=== PATIENT | female | born 1990 | race Caucasian/White ===

== ENCOUNTER 2020-07-20 07:45 | Day surgery (SDC) | payer BC, OTHER ==
[2020-07-20] MEDS ORDERED: Sodium Chloride 0.9% 10 ML Syringe FLUSH PRN ×2 (08:06→08:49)
[2020-07-20] MEDS ORDERED: Lactated Ringers 1,000 ML IV ONE (08:06)
[2020-07-20] MEDS ORDERED: Morphine 4 MG/ML Syringe IVPUSH ONE ×2 (08:06→10:24)
[2020-07-20] MEDS ORDERED: Ondansetron 4 MG/2 ML SDV IVPUSH ONE (08:06)
[2020-07-20] MEDS ORDERED: Sodium Chloride 0.9% 2.5 ML Syringe FLUSH PRN ×2 (08:06→08:49)
--- NOTE | 2020-07-20 08:11 | EDM.PDOC ---
ED HPI GENERAL MEDICAL PROBLEM - General Chief Complaint: Abdominal Pain Stated Complaint: STOMACH HURTS Time Seen by Provider: 07/20/20 08:02 Source of Information: Reports: Patient History Limitations: Reports: No Limitations - History of Present Illness INITIAL COMMENTS - FREE TEXT/NARRATIVE: 29-year-old female with no past medical history presents with abdominal pain. Pain woke her up from sleep at 0100 today, localized to the left upper quadrant, described as bloody, pain radiates diffusely, pain is constant, exacerbated by taking a deep breath. She denies fever, chills, chest pain, cough, nausea, vomiting, diarrhea, dysuria. She started having her period on Monday. ROS: A 10-point review of systems, other than pertinent positives and negatives as stated per HPI, is otherwise negative Past medical history: No additional pertinent history Past Surgical history: No additional pertinent history Social history: No additional pertinent history Family history: No additional pertinent history PHYSICAL EXAM General: AOx4, GCS = 15, moderate distress HEENT: dry mucous membrane Neck: supple, no meningismus, no Kernig or Brudzinski Cardiac: S1S2 tachycardia Respiratory: CTAB, no crackles or rales, no wheezing Abdomen: Soft, diffuse tender, no rebound or guarding, nondistended, no pulsatile mass. Back: nontender Musculoskeletal: NVI distally, no deformity Neuro: No focal deficits, CN 2 - 12 WNL. left upper abdomen & left back Pain Score (Numeric/FACES): 5 - Related Data Allergies Allergy/AdvReac Type Severity Reaction Status Date / Time No Known Allergies Allergy Verified 07/20/20 07:54 Home Meds: Home Meds Insulin Aspart [NovoLOG] 07/20/20 [History] Past Medical History Endocrine/Metabolic History: Reports: Diabetes, Type I Social & Family History - Family History Family Medical History: Noncontributory - Tobacco Use Smoking Status *Q: Never Smoker - Recreational Drug Use Recreational Drug Use: No ED ROS GENERAL - Review of Systems Review Of Systems: See Below (see dictation) ED EXAM, GI/ABD - Physical Exam Exam: See Below (see dictation) Course - Vital Signs Last Recorded V/S: Last Vital Signs Temp 96.9 F 07/20/20 09:48 Pulse 108 H 07/20/20 10:13 Resp 16 07/20/20 09:48 BP 142/74 H 07/20/20 10:13 Pulse Ox 98 07/20/20 09:48 - Orders/Labs/Meds Orders: Active Orders 24 hr Category Date Time Status Admission Status [Patient Status] [ADT] Stat ADT 07/20/20 11:38 Ordered Blood Pressure Mgt: Sepsis [RC] Q15MX2 Care 07/20/20 08:51 Active CULTURE BLOOD [BC] Stat Lab 07/20/20 08:58 Received CULTURE BLOOD [BC] Stat Lab 07/20/20 09:03 Received Sodium Chloride 0.9% [Saline Flush] Med 07/20/20 08:06 Active 10 ml FLUSH ASDIRECTED PRN Sodium Chloride 0.9% [Saline Flush] Med 07/20/20 08:49 Active 10 ml FLUSH ASDIRECTED PRN Sodium Chloride 0.9% [Saline Flush] Med 07/20/20 08:06 Active 2.5 ml FLUSH ASDIRECTED PRN Sodium Chloride 0.9% [Saline Flush] Med 07/20/20 08:49 Active 2.5 ml FLUSH ASDIRECTED PRN Blood Culture x2 Reflex Set [OM.PC] Stat Ot 07/20/20 08:49 Ordered Saline Lock Insert [OM.PC] Stat Ot 07/20/20 08:06 Ordered Saline Lock Insert [OM.PC] Stat Ot 07/20/20 08:49 Ordered Severe Sepsis Onset Time [OM.PC] Stat Ot 07/20/20 08:49 Ordered Medication Orders Sodium Chloride (Saline Flush) 10 ml FLUSH ASDIRECTED PRN PRN Reason: Keep Vein Open Last Admin: 07/20/20 08:24 Dose: 10 ml Documented by: MURIJAM Sodium Chloride (Saline Flush) 2.5 ml FLUSH ASDIRECTED PRN PRN Reason: Keep Vein Open Last Admin: 07/20/20 08:28 Dose: 2.5 ml Documented by: MURIJAM Sodium Chloride (Saline Flush) 10 ml FLUSH ASDIRECTED PRN PRN Reason: Keep Vein Open Sodium Chloride (Saline Flush) 2.5 ml FLUSH ASDIRECTED PRN PRN Reason: Keep Vein Open Labs: Laboratory Tests 07/20/20 07/20/20 07/20/20 Range/Units 08:03 08:03 08:03 WBC 20.98 H (4.0-11.0) K/uL RBC 4.41 (4.30-5.90) M/uL Hgb 14.2 (12.0-16.0) g/dL Hct 41.7 (36.0-46.0) % MCV 94.6 (80.0-98.0) fL MCH 32.2 H (27.0-32.0) pg MCHC 34.1 (31.0-37.0) g/dL RDW Std Deviation 42.7 (28.0-62.0) fl RDW Coeff of Nasim 12 (11.0-15.0) % Plt Count 300 (150-400) K/uL MPV 11.60 (7.40-12.00) fL Neut % (Auto) 85.4 H (48.0-80.0) % Lymph % (Auto) 3.6 L (16.0-40.0) % [place] % (Auto) 10.8 (0.0-15.0) % Eos % (Auto) 0.1 (0.0-7.0) % Baso % (Auto) 0.1 (0.0-1.5) % Neut # (Auto) 17.9 H (1.4-5.7) K/uL Lymph # (Auto) 0.8 (0.6-2.4) K/uL [place] # (Auto) 2.3 H (0.0-0.8) K/uL Eos # (Auto) 0.0 (0.0-0.7) K/uL Baso # (Auto) 0.0 (0.0-0.1) K/uL Nucleated RBC % 0.0 /100WBC Nucleated RBCs # 0 K/uL INR 0.94 Lactate (0.20-2.00) mmol/L Sodium 134 L (136-145) mmol/L Potassium 3.8 (3.5-5.1) mmol/L Chloride 99 (98-107) mmol/L Carbon Dioxide 23.0 (21.0-32.0) mmol/L BUN 7 (7.0-18.0) mg/dL Creatinine 0.7 (0.6-1.0) mg/dL Est Cr Clr Drug Dosing 126.16 mL/min Estimated GFR (MDRD) > 60.0 ml/min Glucose 247 H (74-106) mg/dL POC Glucose (60-110) mg/dL Calcium 8.7 (8.5-10.1) mg/dL Total Bilirubin 0.8 (0.2-1.0) mg/dL AST 13 L (15-37) IU/L ALT 23 (14-63) IU/L Alkaline Phosphatase 104 (46-116) U/L C-Reactive Protein (0.00-0.90) mg/dL Total Protein 7.1 (6.4-8.2) g/dL Albumin 3.7 (3.4-5.0) g/dL Globulin 3.4 (2.6-4.0) g/dL Albumin/Globulin Ratio 1.1 (0.9-1.6) Lipase 40 L (73-393) U/L Urine Color Urine Appearance Urine pH (5.0-8.0) Ur Specific [place] (1.001-1.035) Urine Protein (NEGATIVE) mg/dL Urine Glucose (UA) (NEGATIVE) mg/dL Urine Ketones (NEGATIVE) mg/dL Urine Occult Blood (NEGATIVE) Urine Nitrite (NEGATIVE) Urine Bilirubin (NEGATIVE) Urine Urobilinogen (<2.0) EU/dL Ur Leukocyte Esterase (NEGATIVE) Urine RBC (0-2/HPF) Urine WBC (0-5/HPF) Ur Epithelial Cells (NONE-FEW) Urine Bacteria (NEGATIVE) Urine HCG, Qual (NEGATIVE) SARS-CoV-2 RNA (FORD) (NEGATIVE) 07/20/20 07/20/20 07/20/20 Range/Units 08:03 08:03 09:04 WBC (4.0-11.0) K/uL RBC (4.30-5.90) M/uL Hgb (12.0-16.0) g/dL Hct (36.0-46.0) % MCV (80.0-98.0) fL MCH (27.0-32.0) pg MCHC (31.0-37.0) g/dL RDW Std Deviation (28.0-62.0) fl RDW Coeff of Nasim (11.0-15.0) % Plt Count (150-400) K/uL MPV (7.40-12.00) fL Neut % (Auto) (48.0-80.0) % Lymph % (Auto) (16.0-40.0) % [place] % (Auto) (0.0-15.0) % Eos % (Auto) (0.0-7.0) % Baso % (Auto) (0.0-1.5) % Neut # (Auto) (1.4-5.7) K/uL Lymph # (Auto) (0.6-2.4) K/uL [place] # (Auto) (0.0-0.8) K/uL Eos # (Auto) (0.0-0.7) K/uL Baso # (Auto) (0.0-0.1) K/uL Nucleated RBC % /100WBC Nucleated RBCs # K/uL INR Lactate 0.8 (0.20-2.00) mmol/L Sodium (136-145) mmol/L Potassium (3.5-5.1) mmol/L Chloride (98-107) mmol/L Carbon Dioxide (21.0-32.0) mmol/L BUN (7.0-18.0) mg/dL Creatinine (0.6-1.0) mg/dL Est Cr Clr Drug Dosing mL/min Estimated GFR (MDRD) ml/min Glucose (74-106) mg/dL POC Glucose 203 H (60-110) mg/dL Calcium (8.5-10.1) mg/dL Total Bilirubin (0.2-1.0) mg/dL AST (15-37) IU/L ALT (14-63) IU/L Alkaline Phosphatase (46-116) U/L C-Reactive Protein 2.10 H (0.00-0.90) mg/dL Total Protein (6.4-8.2) g/dL Albumin (3.4-5.0) g/dL Globulin (2.6-4.0) g/dL Albumin/Globulin Ratio (0.9-1.6) Lipase (73-393) U/L Urine Color Urine Appearance Urine pH (5.0-8.0) Ur Specific [place] (1.001-1.035) Urine Protein (NEGATIVE) mg/dL Urine Glucose (UA) (NEGATIVE) mg/dL Urine Ketones (NEGATIVE) mg/dL Urine Occult Blood (NEGATIVE) Urine Nitrite (NEGATIVE) Urine Bilirubin (NEGATIVE) Urine Urobilinogen (<2.0) EU/dL Ur Leukocyte Esterase (NEGATIVE) Urine RBC (0-2/HPF) Urine WBC (0-5/HPF) Ur Epithelial Cells (NONE-FEW) Urine Bacteria (NEGATIVE) Urine HCG, Qual (NEGATIVE) SARS-CoV-2 RNA (FORD) (NEGATIVE) 07/20/20 07/20/20 07/20/20 Range/Units 09:41 09:41 10:27 WBC (4.0-11.0) K/uL RBC (4.30-5.90) M/uL Hgb (12.0-16.0) g/dL Hct (36.0-46.0) % MCV (80.0-98.0) fL MCH (27.0-32.0) pg MCHC (31.0-37.0) g/dL RDW Std Deviation (28.0-62.0) fl RDW Coeff of Nasim (11.0-15.0) % Plt Count (150-400) K/uL MPV (7.40-12.00) fL Neut % (Auto) (48.0-80.0) % Lymph % (Auto) (16.0-40.0) % [place] % (Auto) (0.0-15.0) % Eos % (Auto) (0.0-7.0) % Baso % (Auto) (0.0-1.5) % Neut # (Auto) (1.4-5.7) K/uL Lymph # (Auto) (0.6-2.4) K/uL [place] # (Auto) (0.0-0.8) K/uL Eos # (Auto) (0.0-0.7) K/uL Baso # (Auto) (0.0-0.1) K/uL Nucleated RBC % /100WBC Nucleated RBCs # K/uL INR Lactate (0.20-2.00) mmol/L Sodium (136-145) mmol/L Potassium (3.5-5.1) mmol/L Chloride (98-107) mmol/L Carbon Dioxide (21.0-32.0) mmol/L BUN (7.0-18.0) mg/dL Creatinine (0.6-1.0) mg/dL Est Cr Clr Drug Dosing mL/min Estimated GFR (MDRD) ml/min Glucose (74-106) mg/dL POC Glucose (60-110) mg/dL Calcium (8.5-10.1) mg/dL Total Bilirubin (0.2-1.0) mg/dL AST (15-37) IU/L ALT (14-63) IU/L Alkaline Phosphatase (46-116) U/L C-Reactive Protein (0.00-0.90) mg/dL Total Protein (6.4-8.2) g/dL Albumin (3.4-5.0) g/dL Globulin (2.6-4.0) g/dL Albumin/Globulin Ratio (0.9-1.6) Lipase (73-393) U/L Urine Color YELLOW Urine Appearance CLEAR Urine pH 7.5 (5.0-8.0) Ur Specific [place] 1.010 (1.001-1.035) Urine Protein NEGATIVE (NEGATIVE) mg/dL Urine Glucose (UA) >=1000 (NEGATIVE) mg/dL Urine Ketones 15 H (NEGATIVE) mg/dL Urine Occult Blood SMALL H (NEGATIVE) Urine Nitrite NEGATIVE (NEGATIVE) Urine Bilirubin NEGATIVE (NEGATIVE) Urine Urobilinogen 0.2 (<2.0) EU/dL Ur Leukocyte Esterase NEGATIVE (NEGATIVE) Urine RBC 2-3 (0-2/HPF) Urine WBC 0-1 (0-5/HPF) Ur Epithelial Cells RARE (NONE-FEW) Urine Bacteria RARE (NEGATIVE) Urine HCG, Qual NEGATIVE (NEGATIVE) SARS-CoV-2 RNA (FORD) NEGATIVE (NEGATIVE) 07/20/20 Range/Units 10:32 WBC (4.0-11.0) K/uL RBC (4.30-5.90) M/uL Hgb (12.0-16.0) g/dL Hct (36.0-46.0) % MCV (80.0-98.0) fL MCH (27.0-32.0) pg MCHC (31.0-37.0) g/dL RDW Std Deviation (28.0-62.0) fl RDW Coeff of Nasim (11.0-15.0) % Plt Count (150-400) K/uL MPV (7.40-12.00) fL Neut % (Auto) (48.0-80.0) % Lymph % (Auto) (16.0-40.0) % [place] % (Auto) (0.0-15.0) % Eos % (Auto) (0.0-7.0) % Baso % (Auto) (0.0-1.5) % Neut # (Auto) (1.4-5.7) K/uL Lymph # (Auto) (0.6-2.4) K/uL [place] # (Auto) (0.0-0.8) K/uL Eos # (Auto) (0.0-0.7) K/uL Baso # (Auto) (0.0-0.1) K/uL Nucleated RBC % /100WBC Nucleated RBCs # K/uL INR Lactate (0.20-2.00) mmol/L Sodium (136-145) mmol/L Potassium (3.5-5.1) mmol/L Chloride (98-107) mmol/L Carbon Dioxide (21.0-32.0) mmol/L BUN (7.0-18.0) mg/dL Creatinine (0.6-1.0) mg/dL Est Cr Clr Drug Dosing mL/min Estimated GFR (MDRD) ml/min Glucose (74-106) mg/dL POC Glucose 174 H (60-110) mg/dL Calcium (8.5-10.1) mg/dL Total Bilirubin (0.2-1.0) mg/dL AST (15-37) IU/L ALT (14-63) IU/L Alkaline Phosphatase (46-116) U/L C-Reactive Protein (0.00-0.90) mg/dL Total Protein (6.4-8.2) g/dL Albumin (3.4-5.0) g/dL Globulin (2.6-4.0) g/dL Albumin/Globulin Ratio (0.9-1.6) Lipase (73-393) U/L Urine Color Urine Appearance Urine pH (5.0-8.0) Ur Specific [place] (1.001-1.035) Urine Protein (NEGATIVE) mg/dL Urine Glucose (UA) (NEGATIVE) mg/dL Urine Ketones (NEGATIVE) mg/dL Urine Occult Blood (NEGATIVE) Urine Nitrite (NEGATIVE) Urine Bilirubin (NEGATIVE) Urine Urobilinogen (<2.0) EU/dL Ur Leukocyte Esterase (NEGATIVE) Urine RBC (0-2/HPF) Urine WBC (0-5/HPF) Ur Epithelial Cells (NONE-FEW) Urine Bacteria (NEGATIVE) Urine HCG, Qual (NEGATIVE) SARS-CoV-2 RNA (FORD) (NEGATIVE) Meds: Medications Generic Name Dose Route Start Last Admin Trade Name Cristal PRN Reason Stop Dose Admin Sodium Chloride 10 ml 07/20/20 08:06 07/20/20 08:24 Saline Flush FLUSH 10 ml ASDIRECTED PRN Administration Keep Vein Open Sodium Chloride 2.5 ml 07/20/20 08:06 07/20/20 08:28 Saline Flush FLUSH 2.5 ml ASDIRECTED PRN Administration Keep Vein Open Sodium Chloride 10 ml 07/20/20 08:49 Saline Flush FLUSH ASDIRECTED PRN Keep Vein Open Sodium Chloride 2.5 ml 07/20/20 08:49 Saline Flush FLUSH ASDIRECTED PRN Keep Vein Open Discontinued Medications Generic Name Dose Route Start Last Admin Trade Name Cristal PRN Reason Stop Dose Admin Lactated Ringer's 1,000 mls @ 999 mls/hr 07/20/20 08:06 07/20/20 08:25 Ringers, Lactated IV 07/20/20 09:06 999 mls/hr .BOLUS ONE Administration Sodium Chloride 2,000 mls @ 999 mls/hr 07/20/20 08:49 07/20/20 09:07 Normal Saline IV 07/20/20 10:49 999 mls/hr BOLUS ONE Administration Protocol Piperacillin Sod/Tazobactam 100 mls @ 200 mls/hr 07/20/20 08:49 07/20/20 09:48 Sod 4.5 gm/ Sodium Chloride IV 07/20/20 09:18 Not Given STAT ONE Piperacillin Sod/Tazobactam 100 mls @ 200 mls/hr 07/20/20 09:15 07/20/20 09:15 Sod 4.5 gm/ Sodium Chloride IV 07/20/20 09:44 200 mls/hr STAT ONE Administration Morphine Sulfate 4 mg 07/20/20 08:06 07/20/20 08:25 Morphine IVPUSH 07/20/20 08:07 4 mg ONETIME ONE Administration Morphine Sulfate 4 mg 07/20/20 10:24 07/20/20 10:30 Morphine IVPUSH 07/20/20 10:25 4 mg ONETIME ONE Administration Ondansetron HCl 4 mg 07/20/20 08:06 07/20/20 08:25 Zofran IVPUSH 07/20/20 08:07 4 mg ONETIME ONE Administration - Re-Assessments/Exams Free Text/Narrative Re-Assessment/Exam: 07/20/20 10:[address] Filipe Fernandez 07/20/20 10:51 Dr. Filipe Fernandez will come to the ER to assess patient. 07/20/20 11:40 Dr. Fernandez to admit to same day surgery, taking her to OR now. Departure - Departure Time of Disposition: 10:52 Disposition: Still A Patient 30 Condition: Good Clinical Impression: Appendicitis, Sepsis - Discharge Information *PRESCRIPTION DRUG MONITORING PROGRAM REVIEWED*: Not Applicable *COPY OF PRESCRIPTION DRUG MONITORING REPORT IN PATIENT ALYSSA: Not Applicable Instructions: Appendicitis, Adult Referrals: PCP,None [Primary Care Provider] - Forms: ED Department Discharge Critical Care Note - Critical Care Note Total Time (mins): 128 Comments: CRITCAL CARE: The high probability of sudden, clinically significant deterioration in the patient's condition required the highest level of my preparedness to intervene urgently. The services I provided to this patient were to treat and/or prevent clinically significant deterioration. Services included the following: chart data review, reviewing nursing notes and/or old charts, documentation time, image consultant collaboration regarding findings and treatment options, medication orders and management, direct patient care, vital sign assessments and ordering, interpreting and reviewing diagnostic studies/lab tests. Aggregate critical care time includes only time during which I was engaged in work directly related to the patient's care, as described above, whether at the bedside or elsewhere in the Emergency Department. It did not include time spent performing other reported procedures or the services of residents, students, nurses or physician assistants. Frequent interventions and/or frequent repeat evaluations were required as well as counseling and coordination of care regarding prognosis, treatments, and discussions with patient, staff and consultants. Critical Care (excluding other procedures): 128 minutes Sepsis Event Note (ED) - Evaluation Sepsis Screening Result: Possible Sepsis Risk Current Stage of Sepsis: Sepsis Possible Source of Sepsis: GI Tract/Intra-abdominal - Focused Exam Sepsis Event Note Statement: Focused Sepsis Exam Completed Vital Signs: Vital Signs Temp Pulse Resp BP Pulse Ox 07/20/20 10:13 108 H 142/74 H 07/20/20 09:48 96.9 F 98 16 137/78 98 07/20/20 09:10 133/86 07/20/20 08:11 91 16 130/77 100 07/20/20 07:51 95.8 F L 119 H 18 138/87 96 Capillary Refill, Detail: Less than/Equal to (</=) 2 Seconds - My Orders Last 24 Hours: My Active Orders 07/20/20 08:06 Sodium Chloride 0.9% [Saline Flush] 10 ml FLUSH ASDIRECTED PRN Sodium Chloride 0.9% [Saline Flush] 2.5 ml FLUSH ASDIRECTED PRN Saline Lock Insert [OM.PC] Stat 07/20/20 08:49 Sodium Chloride 0.9% [Saline Flush] 10 ml FLUSH ASDIRECTED PRN Sodium Chloride 0.9% [Saline Flush] 2.5 ml FLUSH ASDIRECTED PRN Blood Culture x2 Reflex Set [OM.PC] Stat Saline Lock Insert [OM.PC] Stat Severe Sepsis Onset Time [OM.PC] Stat 07/20/20 08:51 Blood Pressure Mgt: Sepsis [RC] Q15MX2 07/20/20 08:58 CULTURE BLOOD [BC] Stat 07/20/20 09:03 CULTURE BLOOD [BC] Stat 07/20/20 11:38 Admission Status [Patient Status] [ADT] Stat - Assessment/Plan Last 24 Hours: My Active Orders 07/20/20 08:06 Sodium Chloride 0.9% [Saline Flush] 10 ml FLUSH ASDIRECTED PRN Sodium Chloride 0.9% [Saline Flush] 2.5 ml FLUSH ASDIRECTED PRN Saline Lock Insert [OM.PC] Stat 07/20/20 08:49 Sodium Chloride 0.9% [Saline Flush] 10 ml FLUSH ASDIRECTED PRN Sodium Chloride 0.9% [Saline Flush] 2.5 ml FLUSH ASDIRECTED PRN Blood Culture x2 Reflex Set [OM.PC] Stat Saline Lock Insert [OM.PC] Stat Severe Sepsis Onset Time [OM.PC] Stat 07/20/20 08:51 Blood Pressure Mgt: Sepsis [RC] Q15MX2 07/20/20 08:58 CULTURE BLOOD [BC] Stat 07/20/20 09:03 CULTURE BLOOD [BC] Stat 07/20/20 11:38 Admission Status [Patient Status] [ADT] Stat
[2020-07-20 08:40] LABS: BLOOD UREA NITROGEN,BUN 7 mg/dL (7.0-18.0); CHLORIDE,CL 99 mmol/L (98-107); GLUCOSE RANDOM 247 mg/dL (74-106); LIPASE 40 U/L (73-393); POTASSIUM,K 3.8 mmol/L (3.5-5.1); SODIUM,NA 134 mmol/L (136-145)
[2020-07-20] MEDS ORDERED: Piperacillin/Tazobactam 4.5 GM in Sodium Chloride 0.9% 100 ML IV ONE ×2 (08:49→09:15)
[2020-07-20] MEDS ORDERED: Sodium Chloride 0.9% 2,000 ML IV ONE (08:49)
--- NOTE | 2020-07-20 10:25 | CT ---
CT abdomen and pelvis Technique: Multiple axial sections were obtained from above the dome of the diaphragm inferiorly through the pubic symphysis. Intravenous contrast was utilized. No oral contrast has been given. Comparison: No prior abdominal imaging is available. Findings: Appendix is enlarged. Inflammatory change is seen around the appendix. Small appendicolith is noted at the base of the appendix. These findings are compatible with early appendicitis. Other findings: Visualized lung bases show nothing acute. Bilateral breast prosthesis are noted. Liver contains no focal parenchymal abnormality. Spleen appears within normal limits. Adrenal glands show no nodule. Pancreas shows no abnormality. Aorta shows no aneurysm. No retroperitoneal adenopathy or mesenteric abnormalities are seen. No pelvic mass or adenopathy is noted. IUD is present within the uterus. No free fluid is appreciated. No other inflammatory change is appreciated. Kidneys show symmetric contrast enhancement. Small cyst is noted within the mid left kidney measuring 7 mm. Bone window settings were reviewed which appear within normal limits for the patient's age. Impression: 1. Slightly enlarged appendix with mild surrounding inflammatory change. Small appendicolith. Findings are compatible with appendicitis. 2. Other findings as noted above which appear incidental and nonacute. Diagnostic code #5 This report was dictated in MDT
--- NOTE | 2020-07-20 10:42 | CR ---
Chest: Portable view of the chest was obtained. Comparison: No prior chest x-rays available. Heart size and mediastinum are normal. Lungs are clear with no acute parenchymal change. Bony structures are grossly intact. Impression: 1. Nothing acute is seen on portable chest x-ray. Diagnostic code #1 This report was dictated in MDT
--- NOTE | 2020-07-20 12:03 | PCM.SN.2 ---
- Free Text/Narrative Note: pt seen, chart reviewed; ct/h/p acute appendicities; proceed w surgery, rb dw pt re bleeding, infection, damage to nearby organs, and postop course; pt concurred and proceed, ivf/iv abx/ consent/preg; test/covid test -ve; [id number]
[2020-07-20] MEDS ORDERED: ceFAZolin 2 GM in Premix Bag 1 BAG IV ONE (12:05)
[2020-07-20] MEDS ORDERED: Dexamethasone 4 MG/ML 5 ML MDV ONE (12:08)
[2020-07-20] MEDS ORDERED: Propofol 200 MG/20 ML SDV ONE (12:08)
[2020-07-20] MEDS ORDERED: fentaNYL 250 MCG/5 ML SDV ONE (12:08)
[2020-07-20] MEDS ORDERED: Ondansetron 4 MG/2 ML SDV ONE (12:08)
[2020-07-20] MEDS ORDERED: Lidocaine 2% 5 ML SDV ONE (12:08)
[2020-07-20] MEDS ORDERED: Midazolam 1 MG/ML 2 ML SDV ONE (12:08)
[2020-07-20] MEDS ORDERED: Rocuronium Bromide 50 MG/5 ML Syringe ONE (12:10)
[2020-07-20] MEDS ORDERED: Ketorolac 30 MG/ML SDV ONE (12:13)
[2020-07-20] MEDS ORDERED: Bupivacaine 25%/EPINEPHrine/PF 30 ML ONE (12:14)
[2020-07-20] MEDS ORDERED: Lactated Ringers 1,000 ML IV SCH (12:15)
--- NOTE | 2020-07-20 12:37 | PCM.PREANE ---
Preanesthetic Assessment - Anesthesia/Transfusion/Family Hx Family History of Anesthesia Reaction: No - Review of Systems General: No Symptoms Pulmonary: No Symptoms Cardiovascular: No Symptoms Gastrointestinal: Abdominal Pain Neurological: No Symptoms Other: Reports: None - Physical Assessment NPO Status Date: 07/19/20 Vital Signs: Last Vital Signs Temp 98 F 07/20/20 12:04 Pulse 109 H 07/20/20 12:04 Resp 16 07/20/20 12:04 BP 127/79 07/20/20 12:04 Pulse Ox 97 07/20/20 12:04 Height: 5 ft 9 in Weight: 95.254 kg ASA Class: 3 Mental Status: Alert & Oriented x3 Airway Class: Mallampati = 2 Dentition: Reports: Normal Dentition ROM/Head Extension: Full Lungs: Clear to Auscultation, Normal Respiratory Effort Cardiovascular: Regular Rate, Regular Rhythm - Lab Values: Laboratory Last Values WBC 20.98 K/uL (4.0-11.0) H 07/20/20 08:03 RBC 4.41 M/uL (4.30-5.90) 07/20/20 08:03 Hgb 14.2 g/dL (12.0-16.0) 07/20/20 08:03 Hct 41.7 % (36.0-46.0) 07/20/20 08:03 MCV 94.6 fL (80.0-98.0) 07/20/20 08:03 MCH 32.2 pg (27.0-32.0) H 07/20/20 08:03 MCHC 34.1 g/dL (31.0-37.0) 07/20/20 08:03 RDW Std Deviation 42.7 fl (28.0-62.0) 07/20/20 08:03 RDW Coeff of Nasim 12 % (11.0-15.0) 07/20/20 08:03 Plt Count 300 K/uL (150-400) 07/20/20 08:03 MPV 11.60 fL (7.40-12.00) 07/20/20 08:03 Neut % (Auto) 85.4 % (48.0-80.0) H 07/20/20 08:03 Lymph % (Auto) 3.6 % (16.0-40.0) L 07/20/20 08:03 [place] % (Auto) 10.8 % (0.0-15.0) 07/20/20 08:03 Eos % (Auto) 0.1 % (0.0-7.0) 07/20/20 08:03 Baso % (Auto) 0.1 % (0.0-1.5) 07/20/20 08:03 Neut # (Auto) 17.9 K/uL (1.4-5.7) H 07/20/20 08:03 Lymph # (Auto) 0.8 K/uL (0.6-2.4) 07/20/20 08:03 [place] # (Auto) 2.3 K/uL (0.0-0.8) H 07/20/20 08:03 Eos # (Auto) 0.0 K/uL (0.0-0.7) 07/20/20 08:03 Baso # (Auto) 0.0 K/uL (0.0-0.1) 07/20/20 08:03 Nucleated RBC % 0.0 /100WBC 07/20/20 08:03 Nucleated RBCs # 0 K/uL 07/20/20 08:03 INR 0.94 07/20/20 08:03 Lactate 0.8 mmol/L (0.20-2.00) 07/20/20 08:03 Sodium 134 mmol/L (136-145) L 07/20/20 08:03 Potassium 3.8 mmol/L (3.5-5.1) 07/20/20 08:03 Chloride 99 mmol/L (98-107) 07/20/20 08:03 Carbon Dioxide 23.0 mmol/L (21.0-32.0) 07/20/20 08:03 BUN 7 mg/dL (7.0-18.0) 07/20/20 08:03 Creatinine 0.7 mg/dL (0.6-1.0) 07/20/20 08:03 Est Cr Clr Drug Dosing 126.16 mL/min 07/20/20 08:03 Estimated GFR (MDRD) > 60.0 ml/min 07/20/20 08:03 Glucose 247 mg/dL (74-106) H 07/20/20 08:03 POC Glucose 194 mg/dL (60-110) H 07/20/20 11:54 Calcium 8.7 mg/dL (8.5-10.1) 07/20/20 08:03 Total Bilirubin 0.8 mg/dL (0.2-1.0) 07/20/20 08:03 AST 13 IU/L (15-37) L 07/20/20 08:03 ALT 23 IU/L (14-63) 07/20/20 08:03 Alkaline Phosphatase 104 U/L (46-116) 07/20/20 08:03 C-Reactive Protein 2.10 mg/dL (0.00-0.90) H 07/20/20 08:03 Total Protein 7.1 g/dL (6.4-8.2) 07/20/20 08:03 Albumin 3.7 g/dL (3.4-5.0) 07/20/20 08:03 Globulin 3.4 g/dL (2.6-4.0) 07/20/20 08:03 Albumin/Globulin Ratio 1.1 (0.9-1.6) 07/20/20 08:03 Lipase 40 U/L (73-393) L 07/20/20 08:03 Urine Color YELLOW 07/20/20 09:41 Urine Appearance CLEAR 07/20/20 09:41 Urine pH 7.5 (5.0-8.0) 07/20/20 09:41 Ur Specific [place] 1.010 (1.001-1.035) 07/20/20 09:41 Urine Protein NEGATIVE mg/dL (NEGATIVE) 07/20/20 09:41 Urine Glucose (UA) >=1000 mg/dL (NEGATIVE) 07/20/20 09:41 Urine Ketones 15 mg/dL (NEGATIVE) H 07/20/20 09:41 Urine Occult Blood SMALL (NEGATIVE) H 07/20/20 09:41 Urine Nitrite NEGATIVE (NEGATIVE) 07/20/20 09:41 Urine Bilirubin NEGATIVE (NEGATIVE) 07/20/20 09:41 Urine Urobilinogen 0.2 EU/dL (<2.0) 07/20/20 09:41 Ur Leukocyte Esterase NEGATIVE (NEGATIVE) 07/20/20 09:41 Urine RBC 2-3 (0-2/HPF) 07/20/20 09:41 Urine WBC 0-1 (0-5/HPF) 07/20/20 09:41 Ur Epithelial Cells RARE (NONE-FEW) 07/20/20 09:41 Urine Bacteria RARE (NEGATIVE) 07/20/20 09:41 Urine HCG, Qual NEGATIVE (NEGATIVE) 07/20/20 09:41 SARS-CoV-2 RNA ([place]) NEGATIVE (NEGATIVE) 07/20/20 10:27 - Allergies Allergies/Adverse Reactions: Allergies Allergy/AdvReac Type Severity Reaction Status Date / Time No Known Allergies Allergy Verified 07/20/20 07:54 - Blood Blood Available: No - Anesthesia Plan Pre-Op Medication Ordered: None - Acknowledgements Anesthesia Type Planned: General Anesthesia Pt an Appropriate Candidate for the Planned Anesthesia: Yes Alternatives and Risks of Anesthesia Discussed w Pt/Guardian: Yes Pt/Guardian Understands and Agrees with Anesthesia Plan: Yes Additional Comments: PMH: DM! since age 7, on insulin pump. last sugars 160-170. Pump turned off at 1145 am. PLAN: get PreAnesthesia Questionnaire Endocrine/Metabolic History: Reports: Diabetes, Type I - SUBSTANCE USE Smoking Status *Q: Never Smoker Recreational Drug Use History: No - HOME MEDS Home Medications: Home Meds Insulin Aspart [NovoLOG] 07/20/20 [History] - CURRENT (IN HOUSE) MEDS Current Meds: Current Medications Lactated Ringer's (Ringers, Lactated) 1,000 mls @ 150 mls/hr IV ASDIRECTED ZARA Sodium Chloride (Saline Flush) 10 ml FLUSH ASDIRECTED PRN PRN Reason: Keep Vein Open Last Admin: 07/20/20 08:24 Dose: 10 ml Documented by: Sodium Chloride (Saline Flush) 2.5 ml FLUSH ASDIRECTED PRN PRN Reason: Keep Vein Open Last Admin: 07/20/20 08:28 Dose: 2.5 ml Documented by: Sodium Chloride (Saline Flush) 10 ml FLUSH ASDIRECTED PRN PRN Reason: Keep Vein Open Sodium Chloride (Saline Flush) 2.5 ml FLUSH ASDIRECTED PRN PRN Reason: Keep Vein Open Discontinued Medications Dexamethasone (Dexamethasone) Confirm Administered Dose 40 mg .ROUTE .STK-MED ONE Stop: 07/20/20 12:09 Fentanyl (Sublimaze) Confirm Administered Dose 250 mcg .ROUTE .STK-MED ONE Stop: 07/20/20 12:09 Lactated Ringer's (Ringers, Lactated) 1,000 mls @ 999 mls/hr IV .BOLUS ONE Stop: 07/20/20 09:06 Last Admin: 07/20/20 08:25 Dose: 999 mls/hr Documented by: Sodium Chloride (Normal Saline) 2,000 mls @ 999 mls/hr IV BOLUS ONE; Protocol Stop: 07/20/20 10:49 Last Admin: 07/20/20 09:07 Dose: 999 mls/hr Documented by: Piperacillin Sod/Tazobactam (Sod 4.5 gm/ Sodium Chloride) 100 mls @ 200 mls/hr IV STAT ONE Stop: 07/20/20 09:18 Last Admin: 07/20/20 09:48 Dose: Not Given Documented by: Piperacillin Sod/Tazobactam (Sod 4.5 gm/ Sodium Chloride) 100 mls @ 200 mls/hr IV STAT ONE Stop: 07/20/20 09:44 Last Admin: 07/20/20 09:15 Dose: 200 mls/hr Documented by: Cefazolin Sodium/Dextrose 2 gm (/ Premix) 50 mls @ 100 mls/hr IV ONETIME ONE Stop: 07/20/20 12:34 Bupivacaine HCl/Epinephrine Bitart (Sensorc Mpf 0.25%-Epi 1:[id number]) Confirm Administered Dose 30 mls @ as directed .ROUTE .STK-MED ONE Stop: 07/20/20 12:15 Ketorolac Tromethamine (Toradol) Confirm Administered Dose 30 mg .ROUTE .STK-MED ONE Stop: 07/20/20 12:14 Lidocaine (Xylocaine-Mpf 2%) Confirm Administered Dose 5 ml .ROUTE .STK-MED ONE Stop: 07/20/20 12:09 Midazolam HCl (Versed 1 Mg/Ml) Confirm Administered Dose 2 mg .ROUTE .STK-MED ONE Stop: 07/20/20 12:09 Morphine Sulfate (Morphine) 4 mg IVPUSH ONETIME ONE Stop: 07/20/20 08:07 Last Admin: 07/20/20 08:25 Dose: 4 mg Documented by: Morphine Sulfate (Morphine) 4 mg IVPUSH ONETIME ONE Stop: 07/20/20 10:25 Last Admin: 07/20/20 10:30 Dose: 4 mg Documented by: Ondansetron HCl (Zofran) 4 mg IVPUSH ONETIME ONE Stop: 07/20/20 08:07 Last Admin: 07/20/20 08:25 Dose: 4 mg Documented by: Ondansetron HCl (Zofran) Confirm Administered Dose 4 mg .ROUTE .STK-MED ONE Stop: 07/20/20 12:09 Propofol (Diprivan 20 Ml) Confirm Administered Dose 200 mg .ROUTE .STK-MED ONE Stop: 07/20/20 12:09 Rocuronium [place] (Rocuronium [place]) Confirm Administered Dose 50 mg .ROUTE .STK-MED ONE Stop: 07/20/20 12:11
[2020-07-20] MEDS ORDERED: HYDROmorphone 2 MG/ML Syringe ONE (13:13)
[2020-07-20] MEDS ORDERED: fentaNYL 100 MCG/2 ML SDV IVPUSH PRN (13:17)
[2020-07-20] MEDS ORDERED: Glycopyrrolate 0.2 MG/ML SDV ONE (13:40)
--- NOTE | 2020-07-20 14:24 | PCM.OPNOTE ---
- General Post-Op/Procedure Note Date of Surgery/Procedure: 07/20/20 Operative Procedure(s): lap appendectomy Findings: appendix was severely engulged by cecum/TI/omentum forming a ball requring tedious dissection and mobilization; gross perf not observed; [id number] Pre Op Diagnosis: acute appendicitis Post-Op Diagnosis: Same Anesthesia Technique: General ET Tube Primary Surgeon: Filipe Fernandez Pathology: sent Complications: None Condition: Good
[2020-07-20] MEDS ORDERED: Morphine 4 MG/ML Syringe IVPUSH PRN (14:29)
[2020-07-20] MEDS ORDERED: Ondansetron 4 MG/2 ML SDV IVPUSH PRN (14:37)
--- NOTE | 2020-07-20 14:37 | PCM.POSTAN ---
POST ANESTHESIA ASSESSMENT - MENTAL STATUS Mental Status: Alert, Oriented - VITAL SIGNS Vital Signs: Last Vital Signs Temp 36.9 C 07/20/20 14:12 Pulse 106 H 07/20/20 14:33 Resp 16 07/20/20 14:33 BP 150/76 H 07/20/20 14:33 Pulse Ox 95 07/20/20 14:33 - RESPIRATORY Respiratory Status: Respiratory Rate WNL, Airway Patent, O2 Saturation Stable - CARDIOVASCULAR CV Status: Pulse Rate WNL, Blood Pressure Stable - GASTROINTESTINAL GI Status: No Symptoms - PAIN Pain Score: 0 Free Text/Narrative:: cramping - POST OP HYDRATION Hydration Status: Adequate & Stable
--- NOTE | 2020-07-20 14:41 | PCM.SN.2 ---
- Free Text/Narrative Note: need 24 hrs iv abx before discharge, hi risks for abd absess; npo ivf today; full liquid in the morning; all tolerate, doing fine, possible home by afternoon tomorrow
[2020-07-20] MEDS: Piperacillin/Tazobactam 3.375 GM in Sodium Chloride 0.9% 50 ML IV SCH ×2 (15:43→19:59)
--- NOTE | 2020-07-20 16:34 | CONS ---
DATE OF CONSULTATION: 07/20/2020 DATE OF : 1990 PRIMARY CARE PHYSICIAN: None PCP REFERRING PHYSICIAN: Gautam Arboleda MD The patient is seen and chart reviewed. This is a consult from the emergency room provider, Dr. Arboleda. Consulting question is acute appendicitis. HISTORY OF PRESENT ILLNESS: The patient is a 29-year-old lady and has history of type 1 diabetic, complained over 12-hour history of gradual onset of right lower quadrant pain that started with left upper quadrant and subsequently migrated to periumbilical and right lower quadrant. Denied fever, chill, or diarrhea. Denied prior episode. Pain is about 7/10, seen in the emergency room, got a CAT scan, and report a slightly enlarged appendix with mild inflammatory change and appendicolith compatible with appendicitis. On top of this, the lung base is fine. Breast prosthesis. IUD is present in the uterus. No free fluid. White count 20.98, H and H are 14 and 41.7, platelets are 300. INR is 0.94. Chemistry; BUN and creatinine are 7 and 0.7 and glucose is 247. C-reactive protein is 2.1. UA; no signs or symptoms of UTI and test is negative. COVID test is negative. PMH Denied [place]/CVA/HTN; Type I DM on insulin pump PShx T+A in childhood Med/Allergies pls refer to nursing notes Soc Deied tobacco/etoh abuse Fam Hx not contributory Phys exam a v pleasant caucaisent Female in no acute distress and smiled to MD, moving comfortably on stretcher; pt had pain meds HEENT exam NCAT, sclera clear Pulm CTA Heart RRR Abd s/nt/nd, exquisit T at RLQ, no rebound, +ve Rovsing sign no scar or hernia lab WBC 21 CT acute appendicitis IMPRESSION AND PLAN: Acute appendicitis and would benefit from timely surgery. I offered the patient laparoscopic versus open appendectomy. The patient concurred to proceed as planned. Risks and benefits discussed with the patient including bleeding, infection, and postop course, and possible damage to nearby organs. The patient concurred to proceed with surgery. We will give IV fluid, antibiotic, and proceed with surgery. As always thank you for the kind referral. SARITA / RUTH /[id number] ZONIA
--- NOTE | 2020-07-20 17:32 | OR ---
SURGEON: Filipe Fenrandez MD DATE OF PROCEDURE: 07/20/2020 PREOPERATIVE DIAGNOSIS: Acute appendicitis. POSTOPERATIVE DIAGNOSIS: Acute appendicitis. PROCEDURE PERFORMED: Laparoscopic appendectomy. PRIMARY SURGEON: Filipe Fernandez MD COMPLICATIONS: None. FINDINGS: The appendix was severely engulfed with the surrounding structure including the terminal ileum and the mesentery and the cecum. It took quite a lot of mobilization and mobilized the right colon in order to gain access to amputate the appendix. The appendix was hyperemic, indurated, and consistent with appendicitis. DESCRIPTION OF PROCEDURE: The patient was taken to the operating room and placed in a supine position. Upon induction of general endotracheal anesthesia, the patient was prepped and draped in a sterile fashion. A time-out has been called. The patient identified, procedure identified. Antibiotic given 4 hours ago and procedure then started. First with the introduction of the camera port, a 12 mm trocar site supraumbilically using Optiview. Once gained access to the peritoneal cavity, pneumoperitoneum was accomplished and followed with the placement of 2 more 5 mm trocar, one in the right upper quadrant and one in the suprapubic. Both trocar placement was under direct video supervision. Continued exploration followed the tenia of the cecum, found to have tubular structure, very short, probably about 5 to 6 cm short and the bottom part is engulfed with the surrounding structure, the cecum, the omentum, and the terminal ileum, in particular the terminal ileum and the base of the appendix is quite close to each other. In order to confirm the anatomy, decided to mobilize the right colon, took down the white line of [place] and looked around the whole cecum and failed to find any other structure. Using laparoscopic stapler, the mesentery surrounding the appendix was stapled off using a price cartridge and then using a white cartridge, then appendix was amputated at the base; Retrieved and cut open off field, showed the appendix with lumen and with some cloudy content. This was then followed with extensive irrigation and good hemostasis achieved, followed with placement of Surgicel and then the trocar was removed under direct video supervision, and the umbilical site was closed by the use of UR-6 2-0 Vicryl, and the skin approximated by use of skin oumou. So, the other two 5 mm trocar skin approximated by use of skin staple. This was then followed with appropriate dressing. The patient was awakened, extubated, and transferred to recovery room in hemodynamically stable condition. The patient tolerated the procedure well, there were no intraoperative complications. Dr. Fernandez was present through the whole procedure. Looked at the peritoneal fluid and appendix, it was in fact appendicitis, but gross perforation is not observed. With the patient's elevated white count of 21, we will continue IV antibiotic for 24 hours before sending the patient out. The patient is at very high risk for intra-abdominal abscess. We will keep p.o. antibiotic for at least 1 week. As always, thank you for the kind referral. SARITA MIRANDA /[id number] ZONIA
[2020-07-20] MEDS: Acetaminophen/oxyCODONE 325-5 MG Tab PO PRN (17:33)
[2020-07-20] MEDS ORDERED: Iopamidol 755 MG/ML 500 ML Multipack Bottle IVPUSH STA (18:19)
[2020-07-20] MEDS: Lactated Ringers 1,000 ML IV SCH (22:29)
[2020-07-21] MEDS: Acetaminophen/oxyCODONE 325-5 MG Tab PO PRN ×2 (02:22→08:36)
[2020-07-21] MEDS: Piperacillin/Tazobactam 3.375 GM in Sodium Chloride 0.9% 50 ML IV SCH ×2 (02:22→08:36)
[2020-07-21] MEDS: Lactated Ringers 1,000 ML IV SCH (06:41)
--- NOTE | 2020-07-21 08:51 | PCM48HPAN ---
Post Anesthesia Note - EVALUATION WITHIN 48HRS OF ANESTHETIC Vital Signs in Normal Range: Yes Patient Participated in Evaluation: Yes Respiratory Function Stable: Yes Airway Patent: Yes Cardiovascular Function Stable: Yes Hydration Status Stable: Yes Pain Control Satisfactory: Yes Nausea and Vomiting Control Satisfactory: Yes Mental Status Recovered: Yes Vital Signs: Last Vital Signs Temp 36.6 C 07/21/20 08:32 Pulse 80 07/21/20 08:32 Resp 14 07/21/20 08:32 BP 118/80 07/21/20 08:32 Pulse Ox 97 07/21/20 08:32
--- NOTE | 2020-07-21 12:09 | PCM.SN.2 ---
- Free Text/Narrative Note: doing well, had 4 doses iv abx; continue po abx; fu 1-2 wks
== END 2020-07-21 12:30 | disposition home or self-care (01) ==
LOC: MW.ED 07:45 → MW.SDS 11:54 → MW.MS 12:21 → MW.SDS 07-21 12:30
PROVIDERS: ATTEND Surgery
DX: K35.80 Unspecified acute appendicitis (principal); E10.9 Type 1 diabetes mellitus without complications; Z01.812 Encounter for preprocedural laboratory examination; Z20.828 Contact with and (suspected) exposure to other viral communicable diseases
CPT/HCPCS: 00840; 36415; 71045; 71045-26; 74177; 74177-26; 80053; 81001; 81025; 82962; 83605; 83690; 85025; 85610; 86140; 87040; 88304; 96361; 96365; 96375; 96376; 99291; 99292; A9270-GY; C1776; J1100; J1170; J1885; J2001; J2250; J2270; J2405; J2543; J2704; J3010; J3490; J7030; J7050; J7120; Q9967; U0002